=== PATIENT | male | born 2000 | race Caucasian/White ===

== ENCOUNTER 2021-12-02 13:53 | Emergency (ER) | payer BC, SELFPAY ==
--- NOTE | ~2021-12-02 | CT_ITS ---
EXAMINATION: CT facial bones wo con DATE: 12/02/2021 14:32 INDICATION: nasal trauma . TECHNIQUE: Computed tomography (CT) of the facial bones and maxillofacial region was performed withou t intravenous contrast. Automated exposure control and iterative reconstruction technique were employ ed. The dose-length product was 293.82 mGy-cm. COMPARISON: None. FINDINGS: Soft Tissues: No significant superficial soft tissue swelling. Facial bones: No acute fracture. No lytic or blastic process. Eyes: The globes are intact. The soft tissue planes of the orbits are maintained. Paranasal Sinuses: The visualized aerated spaces are clear. Foreign Bodies: No radiopaque foreign bodies. Other Findings: None. IMPRESSION: No evidence of acute facial bone fracture. Reviewed, dictated and finalized at location K.
[2021-12-02 13:57] VITALS: BP 127/75; PULSE 85; RESP 16; TEMP 36.6; O2SAT 99
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
[2021-12-02] MEDS: IBUPROFEN 400 MG TABLET 800 MG PO (14:37)
[2021-12-02] MEDS: ACETAMINOPHEN 325 MG TABLET 650 MG PO (14:37)
== END 2021-12-02 15:26 | disposition home or self-care (01) ==
PROVIDERS: Emergency Provider Emergency Medicine
DX: S00.33XA Contusion of nose, initial encounter (principal); Y04.0XXA Assault by unarmed brawl or fight, initial encounter
CPT/HCPCS: 70486; 99284; A9270

== ENCOUNTER 2023-06-27 14:12 | Emergency (ER) | payer BC, SELFPAY ==
--- NOTE | 2023-06-27 14:31 | ED.NAVMDI ---
HPI - Nausea/Vomiting/Diarrhea General Chief complaint: Nausea/Vomiting/Diarrhea Stated complaint: Stomach Pain, Nausea, Vomiting Time Seen by Provider: 06/27/23 14:56 Source: patient Mode of arrival: ambulatory Limitations: no limitations History of Present Illness HPI Narrative: Silverio is a 22-year-old male patient presenting to the clinic today with complaints of nausea, vomiting, and mid abdomen pain. No diarrhea. No hematemesis. States that he has vomited approximately 10 times this morning. Is unable to keep any fluids down. History of appendectomy. Related Data Home Medications Medication Instructions Recorded Confirmed No Home Medications 06/27/23 06/27/23 Allergies Allergy/AdvReac Type Severity Reaction Status Date / Time amoxicillin AdvReac Intermediate rash Verified 06/27/23 14:33 Cephalosporins AdvReac Intermediate Swelling Verified 06/27/23 14:33 Review of Systems Review of Systems: Pertinent positives per HPI. Patient denies any fever, chills, rash, headache, visual changes, dizziness, cough, runny nose, sore throat, shortness of breath, chest pain, palpitations, diarrhea, constipation, or any urinary issues. PMFSH Comments At the time of my signature, I reviewed and agree with the nursing past medical, surgical, social, and family history. There is no relevant family history pertinent to the patient complaint. Exam Narrative: General: Well-developed, well nourished, in no apparent distress. Head: Normocephalic, atraumatic. Cardio: Regular rate and rhythm, s1 and s2 normal, no murmur appreciated. Resp: Clear to auscultation bilaterally, no rhonchi, rales, wheezing or rubs. Abdomen: Soft, flat, pliable, bowel sounds present in all quadrants, tender to palpation over the epigastrium and mid abdomen, no organomegly, no CVAT tenderness. Course Course Emergency Course: Portions of this record may have been created with voice recognition software. Level of Care: Express Care Visit Vital Signs Vital signs: Vital signs reviewed Transfer Transfered to: [facility] Transportation: Other (Private care) Transfer rationale: Nausea/vomiting/dehydration/gastritis. Accepting physician: Dr. Hollins MDM - Nausea/Vomiting/Diarrhea MDM Narrative Medical decision making narrative: At the time of visit patient is resting comfortably on the exam table. Patient appears pale and diaphoretic. Labs: COVID and influenza testing was negative. Medications: Zofran 4 mg ODT-patient vomited right after taking Plan: Patient is pale diaphoretic and appears to be dehydrated. Recommend transfer to the ER for further evaluation and IV fluids. Discussed this with the patient he agrees to transfer. He would like to go to [facility]. Contacted Dr. Hollins and he accepts patient for transfer. Patient will be transferred via private car. Differential Diagnosis Differential diagnosis: Likely traveler's diarrhea, food poisoning, gastroenteritis, drug-induced nausea and vomiting, dehydration and other (Gastritis) Discharge Plan Discharge Clinical Impression: Acute nausea with nonbilious vomiting, Acute dehydration Gastritis Qualifiers: Gastritis type: unspecified gastritis Chronicity: acute Gastritis bleeding: without bleeding Qualified Code(s): K29.00 - Acute gastritis without bleeding Patient Disposition: Acute Care Hospital Condition: Stable Prescriptions: No Action No Home Medications Follow-up/Referrals: PHYSICIAN,EVENT PROMOTER [Primary Care Provider] - Time of Disposition: 15:15 Quality NIHSS Nursing Documentation ED NIHSS nursing documentation: reviewed/agree
[2023-06-27] MEDS: ONDANSETRON HCL ODT 4 MG TABLET SUBLINGUAL (14:36)
[2023-06-27 14:37] VITALS: BP 161/107; PULSE 78; RESP 20; TEMP 36.4; O2SAT 100
[2023-06-27 14:38] VITALS: BP 161/107; PULSE 78; RESP 20; TEMP 36.4; O2SAT 100
== END 2023-06-27 15:15 | disposition short-term general hospital (02) ==
PROVIDERS: Emergency Provider Nurse Practitioner Family
DX: R11.2 Nausea with vomiting, unspecified (principal); E86.0 Dehydration; K29.00 Acute gastritis without bleeding; Z20.822 Contact with and (suspected) exposure to COVID-19
CPT/HCPCS: 87426; 87804; 99213; A9270; G0463

== ENCOUNTER 2023-06-27 15:26 | Emergency (ER) | payer BC, SELFPAY ==
[2023-06-27 15:34] VITALS: BP 151/105; PULSE 70; RESP 16; TEMP 36.5; O2SAT 100
--- NOTE | 2023-06-27 16:52 | PC.NURSE ---
pt LWBS, will follow with PCP
== END 2023-06-27 17:29 | disposition left against medical advice (07) ==
LOC: ANHED 17:06
DX: R11.2 Nausea with vomiting, unspecified (principal)
CPT/HCPCS: 99199